=== PATIENT | male | born 1980 | race African-American/Black ===

== ENCOUNTER 2021-10-20 17:17 | Emergency (ER) | payer SELFPAY ==
[~2021-10-20] VITALS: Ht 182.9 cm; Wt 97.7 kg
[2021-10-20 17:26] VITALS: TEMP 98.6
[2021-10-20 21:34] VITALS: BP 132/78; PULSE 80
== END 2021-10-20 19:07 | disposition home or self-care (01) ==
LOC: COL.ER 17:17 → EDBD 17:18 → COL.ER 19:07
DX: U07.1 COVID-19 (principal); F17.210 Nicotine dependence, cigarettes, uncomplicated